=== PATIENT | male | born 1965 | race Hispanic/Latino ===

== ENCOUNTER 2020-11-10 08:57 | Outpatient (CLI) | payer BC ==
[2020-11-10 11:30] LABS: #Eosinphils 0.2 10x3/uL (0.0-0.5); #Monocytes 0.5 10x3/uL (0.0-1.1); %Basophils 0.7 % (0.0-2.0); %Eosinophils 3.1 % (0.0-6.0); %Lymphocytes 31.4 % (18.0-47.0); %Monocytes 9.4 % (0.0-10.0); %Neutrophils 55.2 % (40.0-75.0); Hemoglobin 15.8 g/dL (13.5-17.5); Mean Corpuscular HGB CONC 33.6 g/dL (32.0-36.0); Mean Corpuscular Hemoglobin 31.7 pg (27.0-33.0); Mean Corpuscular Volume 94.2 fl (81.2-95.1); Platelet Count 131 10x3/uL (150-450); RBC Distribution Width 12.1 % (11.5-14.5); Red Blood Cell (RBC) Count 4.99 10x6/uL (4.32-5.72); White Blood Cell (WBC) Count 5.4 10x3/uL (3.5-10.5)
[2020-11-10 11:44] LABS: Anion Gap 13 mmol/L (10-20); BUN (Urea Nitrogen) 15 mg/dL (8.4-25.7); Calc. Creatinine Clearance 0 mL/min (70-130); Carbon Dioxide 25 mmol/L (22-29); Chloride 107 mmol/L (98-107); Potassium 4.7 mmol/L (3.5-5.1); Sodium 140 mmol/L (136-145)
[2020-11-10 11:45] LABS: Calcium 9.4 mg/dL (7.8-10.44); Glucose 86 mg/dL (70-105)
== END 2020-11-10 08:58 | disposition home or self-care (01) ==
LOC: LABBT 08:57
PROVIDERS: ATTEND Specialist
DX: Z01.818 Encounter for other preprocedural examination (principal); K40.90 Unilateral inguinal hernia, without obstruction or gangrene, not specified as recurrent
CPT/HCPCS: 80048; 85025; 93005; 93010

== ENCOUNTER 2020-11-15 06:01 | Day surgery (SDC) | payer BC ==
[2020-11-14 13:32] VITALS: BMI 27.3
[2020-11-15] MEDS ORDERED: Gabapentin 300 MG CAP ONE (06:15)
[2020-11-15] MEDS ORDERED: Ketorolac Tromethamine 30 MG/ML VIAL ONE (06:16)
[2020-11-15] MEDS ORDERED: Acetaminophen 500 MG TAB ONE (06:16)
[2020-11-15] MEDS ORDERED: Bupivacaine 0.25% HCL 30 ML VIAL ONE (06:48)
[2020-11-15] MEDS ORDERED: Lidocaine 1% w/Epinephrine 1:100K 20 ML VIAL ONE (06:48)
[2020-11-15] MEDS ORDERED: Fentanyl 100 MCG/2 ML VIAL ONE (07:00)
[2020-11-15] MEDS ORDERED: Ketamine 50 MG/ML (10ML VIAL) ONE (07:00)
[2020-11-15] MEDS ORDERED: Midazolam HCl 2 mg/2 ml Vial ONE (07:24)
[2020-11-15] MEDS ORDERED: PROPOFOL 200 MG/20 ML VIAL ONE (07:40)
[2020-11-15] MEDS ORDERED: Lidocaine 1% PF 5 ML VIAL ONE (07:40)
[2020-11-15] MEDS ORDERED: Ondansetron PF 4 MG/2 ML Vial ONE (07:40)
[2020-11-15] MEDS ORDERED: Dexamethasone 20 MG/5 ML VIAL ONE (07:40)
[2020-11-15] MEDS ORDERED: Rocuronium Bromide 10 MG/ML (10ML VIAL) ONE (07:40)
[2020-11-15] MEDS ORDERED: Glycopyrrolate 0.2 MG/ML 5 ML SYRINGE ONE (07:40)
[2020-11-15] MEDS ORDERED: ePHEDrine Sulfate 50 MG/10 ML VIAL ONE (07:40)
[2020-11-15] MEDS ORDERED: HYDROcodone/Acetaminophen 5/325 mg Tablet ONE (11:29)
== END 2020-11-15 14:05 | disposition home or self-care (01) ==
LOC: SDC 06:01
PROVIDERS: ATTEND Specialist
PROC: 0YUA4JZ Supplement Bilateral Inguinal Region with Synthetic Substitute, Percutaneous Endoscopic Approach (ICD-10-PCS; principal; 2020-11-15)
DX: K40.20 Bilateral inguinal hernia, without obstruction or gangrene, not specified as recurrent (principal)
CPT/HCPCS: C1781; J0690; J1100; J1885; J2250; J2405; J2704; J3010; S0020

== ENCOUNTER 2021-01-07 01:21 | Emergency (ER) | payer BC ==
[2021-01-07] MEDS ORDERED: Morphine 4 MG/ML VIAL ONE (01:40)
[2021-01-07] MEDS ORDERED: Ondansetron PF 4 MG/2 ML Vial ONE (01:40)
[2021-01-07 01:49] LABS: #Eosinphils 0.1 thou/uL (0.0-0.7); #Lymphocytes 1.6 thou/uL (1.20-3.40); #Monocytes 0.6 thou/uL (0.11-0.59); #Neutrophils 5.6 thou/uL (1.40-6.50); %Basophils 0.5 % (0.0-1.0); %Lymphocytes 20.7 % (21.0-51.0); %Monocytes 6.9 % (0.0-10.0); Hemoglobin 16.2 g/dL (14.0-18.0); Mean Corpuscular HGB CONC 34.6 g/dL (32.0-36.0); Mean Corpuscular Hemoglobin 32.7 pg (27.0-31.0); Mean Corpuscular Volume 94.6 fL (78.0-98.0); Mean Platelet Volume 9.2 fL (7.4-10.4); Platelet Count 158 thou/uL (130-400); RBC Distribution Width 11.2 % (11.5-14.5); Red Blood Cell (RBC) Count 4.96 mill/uL (4.70-6.10)
[2021-01-07 02:12] LABS: ALT (SGPT) 68 U/L (8-55); AST (SGOT) 55 U/L (5-34); Albumin 4.3 g/dL (3.5-5.0); Alkaline Phosphatase 96 U/L (40-110); Anion Gap 12 mmol/L (10-20); BUN (Urea Nitrogen) 18 mg/dL (8.4-25.7); Bilirubin, Total 0.6 mg/dL (0.2-1.2); Calc. Creatinine Clearance 0 mL/min (70-130); Calcium 9.8 mg/dL (7.8-10.44); Carbon Dioxide 25 mmol/L (22-29); Chloride 104 mmol/L (98-107); Globulin 3.4 g/dL (2.4-3.5); Glucose 152 mg/dL (70-105); Lipase 23 U/L (8-78); Potassium 3.8 mmol/L (3.5-5.1); Protein, Total 7.7 g/dL (6.0-8.3); Sodium 137 mmol/L (136-145)
[2021-01-07] MEDS ORDERED: Mag-Al 1200 mg/1200 mg/30 ML UDCUP ONE (02:56)
[2021-01-07] MEDS ORDERED: Lidocaine Viscous Sol 2% 15 ml UD Cup ONE (02:56)
[2021-01-07 02:59] LABS: Bilirubin Negative (Negative); Blood, Urine Negative (Negative); Clarity Clear (Clear); Glucose, Urine (Dipstick) Normal (Negative); Ketone, Urine 20 mg/dL (Negative); Leukocyte Negative Leu/uL (Negative); Nitrite Negative (Negative); Protein, Urine (Dipstick) Negative (Neg-Trace); Urobilinogen Normal mg/dL (Less than 2)
[2021-01-07] MEDS ORDERED: Iopamidol-370 76% 500 ML 1 ML ONE (09:52)
== END 2021-01-07 03:52 | disposition home or self-care (01) ==
LOC: ERS 01:21
DX: R10.84 Generalized abdominal pain (principal); R74.8 Abnormal levels of other serum enzymes
CPT/HCPCS: 36415; 36416; 71045; 74177; 80053; 81003; 83690; 84484; 85025; 93005; 96374; 96375; J2270; J2405; Q9967

== ENCOUNTER 2021-10-24 05:15 | Observation (INO) | payer BC, SELFPAY ==
[2021-10-24] MEDS ORDERED: Ondansetron PF 4 MG/2 ML Vial ONE (05:45)
[2021-10-24] MEDS ORDERED: Ketorolac Tromethamine 30 MG/ML VIAL ONE (05:45)
[2021-10-24 05:57] LABS: #Lymphocytes 0.7 thou/uL (1.20-3.40); #Monocytes 0.9 thou/uL (0.11-0.59); #Neutrophils 13.2 thou/uL (1.40-6.50); %Basophils 0.1 % (0.0-1.0); %Eosinophils 0.3 % (0.0-10.0); %Lymphocytes 4.7 % (21.0-51.0); %Monocytes 6.2 % (0.0-10.0); %Neutrophils 88.7 % (42.0-75.0); Hemoglobin 16.3 g/dL (14.0-18.0); Mean Corpuscular Hemoglobin 33.2 pg (27.0-31.0); Mean Corpuscular Volume 97.7 fL (78.0-98.0); Mean Platelet Volume 9.3 fL (7.4-10.4); Platelet Count 135 thou/uL (130-400); RBC Distribution Width 11.1 % (11.5-14.5); Red Blood Cell (RBC) Count 4.91 mill/uL (4.70-6.10); White Blood Cell (WBC) Count 14.8 thou/uL (4.8-10.8)
[2021-10-24 06:00] LABS: Bacteria/HPF None Seen HPF (None Seen); Bilirubin Negative (Negative); Blood, Urine Negative (Negative); Clarity Clear (Clear); Glucose, Urine (Dipstick) Normal (Negative); Ketone, Urine Trace mg/dL (Negative); Leukocyte Negative Leu/uL (Negative); Nitrite Negative (Negative); Protein, Urine (Dipstick) 50 mg/dL (Neg-Trace); RBC/HPF 0-3 HPF (0-3); Specific Gravity, Urine 1.026 (1.002-1.036); Squamous Epithelial None Seen HPF (0-3); WBC/HPF 0-3 HPF (0-3); pH, Urine 8.5 (5.0-9.0)
[2021-10-24 06:24] LABS: ALT (SGPT) 85 U/L (8-55); AST (SGOT) 80 U/L (5-34); Albumin 4.1 g/dL (3.5-5.0); Alkaline Phosphatase 99 U/L (40-110); Anion Gap 14 mmol/L (10-20); BUN (Urea Nitrogen) 13 mg/dL (8.4-25.7); Bilirubin, Total 3.6 mg/dL (0.2-1.2); Calc. Creatinine Clearance 0 mL/min (70-130); Calcium 9.5 mg/dL (7.8-10.44); Carbon Dioxide 23 mmol/L (22-29); Chloride 102 mmol/L (98-107); Globulin 3.5 g/dL (2.4-3.5); Glucose 118 mg/dL (70-105); Lipase 13 U/L (8-78); Potassium 3.9 mmol/L (3.5-5.1); Protein, Total 7.6 g/dL (6.0-8.3); Sodium 135 mmol/L (136-145)
[2021-10-24] MEDS ORDERED: ISOVUE-370 76%-LOCM 1 ML ONE (08:00)
[2021-10-24] MEDS ORDERED: Piperacillin/Tazobactam 4.5 GM VIAL ONE (11:26)
[2021-10-24] MEDS ORDERED: Iopamidol 15 ML ONE (12:17)
[2021-10-24] MEDS ORDERED: Bupivacaine 0.25% HCL 30 ML VIAL ONE (12:17)
[2021-10-24] MEDS ORDERED: Lidocaine 1% w/Epinephrine 1:100K 20 ML VIAL ONE (12:17)
[2021-10-24] MEDS ORDERED: fentaNYL Citrate/PF 100 MCG/2 ML SYRINGE ONE (12:23)
[2021-10-24] MEDS ORDERED: Lidocaine 2% Jelly 5 ML TUBE ONE (12:23)
[2021-10-24 12:28] LABS: SARS-CoV-2 NAA Rapid Test Not Detected (NotDetected)
[2021-10-24] MEDS ORDERED: Ondansetron HCl/PF 4 MG/2 ML Vial IVP PRN (15:43)
[2021-10-24] MEDS ORDERED: Promethazine HCl 25 MG/ML VIAL IM PRN ×2 (15:43→15:54)
[2021-10-24] MEDS ORDERED: Promethazine HCl 25 MG/ML VIAL IVPB PRN (15:43)
[2021-10-24] MEDS ORDERED: Dextrose 50% Abboject 50 ML SYRINGE SLOW IVP PRN (15:54)
[2021-10-24] MEDS ORDERED: Calcium Carbonate 500 MG ChewTAB PO PRN (15:54)
[2021-10-24] MEDS ORDERED: Mag-Al 1200 mg/1200 mg/30 ML UDCUP PO PRN (15:54)
[2021-10-24] MEDS ORDERED: Dextrose 5% in Water 1,000 ML IV PRN (15:54)
[2021-10-24] MEDS ORDERED: Ondansetron PF 4 MG/2 ML Vial IVP PRN (15:54)
[2021-10-24] MEDS ORDERED: hydrALAZINE 20 MG/ML VIAL SLOW IVP PRN (15:54)
[2021-10-24] MEDS ORDERED: traMADol HCl 50 MG TAB PO PRN (15:56)
[2021-10-24 17:47] VITALS: BMI 28.3
[2021-10-24] MEDS: traMADol HCl 50 MG TAB PO SCH ×2 (18:10→20:28)
[2021-10-24] MEDS: Acetaminophen 325 MG TAB PO SCH (18:12)
[2021-10-24] MEDS: Ketorolac Tromethamine 30 MG/ML VIAL IVP SCH (18:12)
[2021-10-24] MEDS: Famotidine/PF 20 mg/2ml Vial SLOW IVP SCH (20:25)
[2021-10-24] MEDS: Famotidine 20 MG TAB PO SCH (20:27)
[2021-10-24] MEDS: Lactated Ringer's 1,000 ML IV SCH (20:29)
[2021-10-24 23:50] VITALS: TEMP 97.5
[2021-10-25] MEDS: Ketorolac Tromethamine 30 MG/ML VIAL IVP SCH ×3 (00:05→12:11)
[2021-10-25] MEDS: Acetaminophen 325 MG TAB PO SCH ×3 (00:05→12:10)
[2021-10-25] MEDS: Piperacillin/Tazobactam 3.375 GM in Sodium Chloride 0.9% 100 ML IVPB SCH ×2 (00:05→09:02)
[2021-10-25] MEDS: Lactated Ringer's 1,000 ML IV SCH ×2 (00:15→09:02)
[2021-10-25] MEDS: traMADol HCl 50 MG TAB PO SCH ×2 (03:51→10:17)
[2021-10-25 05:13] LABS: ALT (SGPT) 132 U/L (8-55); AST (SGOT) 134 U/L (5-34); Albumin 3.3 g/dL (3.5-5.0); Alkaline Phosphatase 82 U/L (40-110); Anion Gap 11 mmol/L (10-20); BUN (Urea Nitrogen) 13 mg/dL (8.4-25.7); Bilirubin, Total 2.1 mg/dL (0.2-1.2); Calc. Creatinine Clearance 104 mL/min (70-130); Calcium 8.5 mg/dL (7.8-10.44); Carbon Dioxide 26 mmol/L (22-29); Chloride 104 mmol/L (98-107); Globulin 3.1 g/dL (2.4-3.5); Glucose 150 mg/dL (70-105); Lipase 7 U/L (8-78); Potassium 4.3 mmol/L (3.5-5.1); Protein, Total 6.4 g/dL (6.0-8.3); Sodium 137 mmol/L (136-145)
[2021-10-25] MEDS: Famotidine 20 MG TAB PO SCH (09:02)
[2021-10-25] MEDS: Famotidine/PF 20 mg/2ml Vial SLOW IVP SCH (09:03)
[2021-10-25 12:22] VITALS: BP 119/74
== END 2021-10-25 15:10 | disposition home or self-care (01) ==
LOC: ERS 05:15 → MSONC 17:28
PROVIDERS: ADMIT Surgery; ATTEND Surgery
PROC: 0FT44ZZ Resection of Gallbladder, Percutaneous Endoscopic Approach (ICD-10-PCS; principal; 2021-10-24)
PROC: BF101ZZ Fluoroscopy of Bile Ducts using Low Osmolar Contrast (ICD-10-PCS; 2021-10-24)
DX: K80.00 Calculus of gallbladder with acute cholecystitis without obstruction (principal); K82.8 Other specified diseases of gallbladder; K66.0 Peritoneal adhesions (postprocedural) (postinfection); R79.89 Other specified abnormal findings of blood chemistry; Z20.822 Contact with and (suspected) exposure to COVID-19
CPT/HCPCS: 36415; 47532; 74177; 76705; 80053; 81003; 81015; 83690; 85025; 88304; 96365; 96375; 96376; C1713; G0378; J1885; J2405; J2543; J3490; J7120; Q9966; Q9967; S0020; U0002